=== PATIENT | male | born 1985 | race Caucasian/White ===

== ENCOUNTER 2018-03-08 00:18 | Emergency (ER) | payer BC ==
[2018-03-08] MEDS ORDERED: Lorazepam 2 MG/ML VIAL ONE (00:53)
[2018-03-08 01:12] LABS: #Basophils 0.1 thou/uL (0.0-0.2); #Eosinphils 0.1 thou/uL (0.0-0.7); #Lymphocytes 1.9 thou/uL (1.20-3.40); #Monocytes 0.5 thou/uL (0.11-0.59); #Neutrophils 3.3 thou/uL (1.40-6.50); %Eosinophils 0.9 % (0.0-10.0); %Lymphocytes 33.3 % (21.0-51.0); %Monocytes 8.1 % (0.0-10.0); %Neutrophils 56.7 % (42.0-75.0); Hemoglobin 13.3 g/dL (14.0-18.0); Mean Corpuscular HGB CONC 35.6 g/dL (32.0-36.0); Mean Corpuscular Volume 89.8 fL (78.0-98.0); Mean Platelet Volume 6.8 fL (7.4-10.4); Platelet Count 183 thou/uL (130-400); RBC Distribution Width 11.4 % (11.5-14.5); Red Blood Cell (RBC) Count 4.16 mill/uL (4.70-6.10); White Blood Cell (WBC) Count 5.7 thou/uL (4.8-10.8)
[2018-03-08 01:24] LABS: Glucose 113 mg/dL (70-105)
[2018-03-08 01:29] LABS: ALT (SGPT) 27 U/L (8-55); AST (SGOT) 22 U/L (5-34); Albumin 4.8 g/dL (3.5-5.0); Alkaline Phosphatase 63 U/L (40-150); Anion Gap 11 mmol/L (10-20); BUN (Urea Nitrogen) 11 mg/dL (8.9-20.6); Bilirubin, Total 0.6 mg/dL (0.2-1.2); CK (CPK) 78 U/L (30-200); Calc. Creatinine Clearance 0 mL/min (70-130); Calcium 9.7 mg/dL (7.8-10.44); Carbon Dioxide 29 mmol/L (22-29); Chloride 102 mmol/L (98-107); Estimated GFR-MDRD Greater than 90; Globulin 2.2 g/dL (2.4-3.5); Potassium 3.7 mmol/L (3.5-5.1); Sodium 138 mmol/L (136-145)
[2018-03-08 01:34] LABS: CKMB 1.2 ng/mL (0-6.6); Troponin I Less than 0.010 ng/mL (< 0.028)
--- NOTE | 2018-03-08 08:59 | RAD ---
PORTABLE CHEST 1 VIEW: DATE: 03/08/18. TIME: 12:29 a.m. HISTORY: Chest pain. FINDINGS: Comparison is made with the exam of 10/03/14. The heart size is normal. The lungs are expanded and clear. The bony thorax is normal. IMPRESSION: Normal exam. POS: [facility]
== END 2018-03-08 01:49 | disposition home or self-care (01) ==
LOC: ERS 00:18
DX: R07.9 Chest pain, unspecified (principal); F41.9 Anxiety disorder, unspecified; I10 Essential (primary) hypertension
CPT/HCPCS: 36415; 71045; 80053; 82550; 82553; 84484; 85025; 85379; 93005; J2060